=== PATIENT | male | born 1930 | race Asian ===

== ENCOUNTER 2016-09-06 09:30 | Outpatient (RCR) | payer MEDICARE | END 2016-09-25 | disposition home or self-care (01) | LOC: PTY 09:30 | DX: R26.89 Other abnormalities of gait and mobility (principal); M54.5 Low back pain; M25.512 Pain in left shoulder; M25.511 Pain in right shoulder | CPT/HCPCS: 97110; 97162; G0283; G8978; G8979 ==

== ENCOUNTER 2016-10-06 09:36 | Outpatient (RCR) | payer MEDICARE | END 2016-10-26 | disposition home or self-care (01) | LOC: PTY 09:36 | DX: R26.89 Other abnormalities of gait and mobility (principal); M54.5 Low back pain; M25.512 Pain in left shoulder; M25.511 Pain in right shoulder; Z88.0 Allergy status to penicillin | CPT/HCPCS: 97110; 97140; G0283; G8979; G8980 ==

== ENCOUNTER 2017-02-23 11:00 | Outpatient (RCR) | payer MEDICARE | END 2017-02-25 | disposition home or self-care (01) | LOC: PTY 11:00 | DX: R26.9 Unspecified abnormalities of gait and mobility (principal); M54.9 Dorsalgia, unspecified | CPT/HCPCS: 97110; 97140; 97162; G0283; G8978; G8979 ==